=== PATIENT | male | born 1995 | race Caucasian/White ===

== ENCOUNTER 2017-02-01 15:16 | Outpatient (CLI) | payer BC | END 2017-02-01 15:17 | disposition critical access hospital (66) | LOC: EMS 15:16 | PROVIDERS: ATTEND Surgery | DX: M25.512 Pain in left shoulder (principal); S01.82XA Laceration with foreign body of other part of head, initial encounter; S01.02XA Laceration with foreign body of scalp, initial encounter; V48.5XXA Car driver injured in noncollision transport accident in traffic accident, initial encounter; Y92.414 Local residential or business street as the place of occurrence of the external cause | CPT/HCPCS: A0425; A0427 ==

== ENCOUNTER 2017-02-01 15:46 | Observation (INO) | payer OTHER, BC ==
[2017-02-01] MEDS ORDERED: ACETAMINOPHEN 1,000 MG/100 ML 100 ML IV STA (16:01)
[2017-02-01] MEDS ORDERED: SODIUM CHLORIDE 0.9% 1,000 ML IV ONE (16:01)
[2017-02-01] MEDS ORDERED: ACETAMINOPHEN 1,000 MG/100 ML 100 ML IV ONE (16:05)
[2017-02-01 16:16] LABS: BASOPHILS # (AUTO) 0.1 10^3/uL (0.0-0.1); BASOPHILS % (AUTO) 0.6 %; EOSINOPHILS # (AUTO) 0.2 10^3/uL (0.0-0.7); EOSINOPHILS % (AUTO) 2.3 %; HCT - HEMATOCRIT 45.5 % (42.0-52.0); HGB - HEMOGLOBIN 15.5 g/dL (14.0-18.0); LYMPHOCYTES # (AUTO) 1.8 10^3/uL (1.5-3.5); LYMPHOCYTES % (AUTO) 20.2 %; MEAN CORPUSCULAR HEMOGLOBIN 31.1 pg (27.0-31.0); MEAN CORPUSCULAR HGB CONC 34.1 g/dL (32.0-36.0); MEAN CORPUSCULAR VOLUME 91.3 fL (80.0-94.0); MEAN PLATELET VOLUME 8.5 fL (7.4-11.4); MONOCYTES # (AUTO) 0.5 10^3/uL (0.0-1.0); MONOCYTES % (AUTO) 5.8 %; NEUTROPHILS # (AUTO) 6.5 10^3/uL (1.5-6.6); NEUTROPHILS % (AUTO) 71.1 %; RED BLOOD COUNT 4.98 10^6/uL (4.70-6.10); RED CELL DISTRIBUTION WIDTH 13.2 % (12.0-15.0); UNCORRECTED WHITE BLOOD COUNT 9.1 x10^3/uL; WHITE BLOOD COUNT 9.1 x10^3/uL (4.8-10.8)
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
[2017-02-01 16:33] LABS: BILIRUBIN,TOTAL 0.6 mg/dL (0.2-1.0); CALCIUM 9.1 mg/dL (8.5-10.3); CREATININE 1.1 mg/dL (0.6-1.2); POTASSIUM 3.1 mmol/L (3.5-5.0); TOTAL PROTEIN 7.8 g/dL (6.7-8.2)
--- NOTE | 2017-02-01 16:36 | XRAY Preliminary Report ---
Exam: XR Chest 1 View IMPRESSION: Left clavicle fracture. [facility] SITE ID: [id number]
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
[2017-02-01] MEDS ORDERED: IOPAMIDOL-300 100 ML VIAL IVP ONE (17:03)
[2017-02-01] MEDS ORDERED: HYDROmorphone 1 MG/ML SYRINGE ONE (17:24)
[2017-02-01] MEDS ORDERED: ONDANSETRON 4 MG/2 ML VIAL IVP STA (17:24)
[2017-02-01] MEDS ORDERED: ONDANSETRON 4 MG/2 ML VIAL ONE (17:24)
[2017-02-01] MEDS ORDERED: HYDROmorphone 1 MG/ML SYRINGE IVP STA ×2 (17:24→19:53)
--- NOTE | 2017-02-01 17:41 | CT Preliminary Report ---
Exam: CT Head W/O IMPRESSION: 1. Moderate to large left lateral scalp hematoma. 2. No acute or focal intracranial abnormality seen. [facility] S[facility] [id number]
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
--- NOTE | 2017-02-01 17:44 | CT Preliminary Report ---
Exam: CT Cervical Spine W/O IMPRESSION: 1. No cervical spine fracture. 2. Right apical pneumothorax. [facility] SITE ID: [id number]
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
--- NOTE | 2017-02-01 17:51 | CT Preliminary Report ---
Exam: CT Abdomen/Pelvis W/ IMPRESSION: 1. No evidence for solid organ injury. No acute findings are seen in the abdomen or pelvis. 2. Small right base pneumothorax. [facility] The above critical findings were discussed with kael by Dr. Zulema Ramesh at 17:47 hrs on . SITE ID: [id number]
--- NOTE | 2017-02-01 17:51 | CT Preliminary Report ---
Exam: CT Facial Bones W/O IMPRESSION: 1. No facial bone fracture. 2. Mild pansinus mucosal thickening and right maxillary sinus mucous retention cyst. [facility] SITE ID: [id number]
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
--- NOTE | 2017-02-01 18:06 | CT Preliminary Report ---
Exam: CT Chest Angio (AORTA) IMPRESSION: 1. No vascular abnormality. 2. Small right apical pneumothorax. No acute rib fracture seen to account for such. 3. Pulmonary contusion superior posterior aspect left lung. [facility] The above critical findings were discussed with Dr. Hunter by Dr. Lisset Goodrich at 18:05 hrs on . SITE ID: [id number]
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
[2017-02-01] MEDS ORDERED: SODIUM CHLORIDE FLUSH 0.9% 10 ML SYRINGE IVP PRN (19:25)
[2017-02-01] MEDS: HYDROmorphone 1 MG/ML SYRINGE IVP PRN ×2 (19:45→21:52)
[2017-02-01] MEDS: D5NS W/20 MEQ KCL 1,000 ML IV SCH (21:10)
[2017-02-01] MEDS: PANTOPRAZOLE 40 MG VIAL IVP SCH (21:53)
[2017-02-01] MEDS ORDERED: NICOTINE 21 MG PATCH TOP SCH (22:00)
[2017-02-02] MEDS: HYDROmorphone 1 MG/ML SYRINGE IVP PRN ×3 (00:38→13:50)
[2017-02-02] MEDS: ONDANSETRON 4 MG/2 ML VIAL IVP PRN ×3 (00:38→15:27)
[2017-02-02] MEDS: SODIUM CHLORIDE FLUSH 0.9% 10 ML SYRINGE IVP SCH ×3 (01:01→09:27)
[2017-02-02 05:02] LABS: BASOPHILS % (AUTO) 0.3 %; EOSINOPHILS # (AUTO) 0.1 10^3/uL (0.0-0.7); EOSINOPHILS % (AUTO) 0.7 %; HCT - HEMATOCRIT 39.1 % (42.0-52.0); HGB - HEMOGLOBIN 13.3 g/dL (14.0-18.0); LYMPHOCYTES % (AUTO) 7.8 %; MEAN CORPUSCULAR HEMOGLOBIN 31.2 pg (27.0-31.0); MEAN CORPUSCULAR HGB CONC 33.9 g/dL (32.0-36.0); MEAN PLATELET VOLUME 8.8 fL (7.4-11.4); MONOCYTES # (AUTO) 0.8 10^3/uL (0.0-1.0); MONOCYTES % (AUTO) 6.7 %; NEUTROPHILS # (AUTO) 10.7 10^3/uL (1.5-6.6); NEUTROPHILS % (AUTO) 84.5 %; RED BLOOD COUNT 4.25 10^6/uL (4.70-6.10); RED CELL DISTRIBUTION WIDTH 12.9 % (12.0-15.0); UNCORRECTED WHITE BLOOD COUNT 12.6 x10^3/uL; WHITE BLOOD COUNT 12.6 x10^3/uL (4.8-10.8)
[2017-02-02 05:15] LABS: ALBUMIN/GLOBULIN RATIO 2.2 (1.0-2.2); BILIRUBIN,TOTAL 0.9 mg/dL (0.2-1.0); CALCIUM 8.4 mg/dL (8.5-10.3); CREATININE 0.9 mg/dL (0.6-1.2); POTASSIUM 4.2 mmol/L (3.5-5.0); TOTAL PROTEIN 6.4 g/dL (6.7-8.2)
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
--- NOTE | 2017-02-02 06:11 | XRAY Preliminary Report ---
Exam: XR Chest 1 View IMPRESSION: Stable small right pneumothorax without mediastinal shift. [facility] SITE ID: [id number]
--- NOTE | 2017-02-02 06:13 | XRAY Report ---
EXAM: CHEST RADIOGRAPHY EXAM DATE: 02/02/2017 05:57 AM. CLINICAL HISTORY: Follow-up pneumothorax COMPARISON: Prior day x-ray and CT. TECHNIQUE: 1 view. FINDINGS: Lungs/Pleura: Stable small right pneumothorax. Lungs otherwise clear. No large effusion. Mediastinum: Within exam limitations, cardiomediastinal contour is normal. Other: None. IMPRESSION: Stable small right pneumothorax without mediastinal shift. [facility] Referring Provider Line: [phone] SITE ID: [id number]
[2017-02-02] MEDS: D5NS W/20 MEQ KCL 1,000 ML IV SCH (08:15)
[2017-02-02] MEDS: PANTOPRAZOLE 40 MG VIAL IVP SCH (09:27)
[2017-02-02] MEDS ORDERED: ACETAMINOPHEN 325 MG TABLET PO PRN (09:45)
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
[2017-02-02 16:08] VITALS: BP 122/70
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
--- NOTE | 2017-02-02 18:35 | Discharge Plan ---
Discharge Plan Disposition: 01 Home, Self Care Condition: Good Diet: Regular Activity Restrictions: Additional Comments (No flying in plane (pressurized cabin), scuba diving, or smoking.) Shower Restrictions: No Driving Restrictions: Yes (Until he can drive without pain medication and full range of motion.) Assistance Devices: Sling (For comfort measures.) Weight Bearing: Full Weight Additional Instructions or Follow Up instructions: Patient to call office for an order for CXR to be done PRIOR to visit with Dr. Cartagena to check for stability and hopefully resolution of pneumothorax. Prescription for Norco10/325 mg and Colace already given to patient. No Smoking: If you smoke, Please STOP! Call for help. Follow-up with: Vel Ward MD [Provider Admit Priv/Credential] - JOSEFINA CARTAGENA MD [Provider Admit Priv/Credential] -
--- NOTE | 2017-02-03 10:13 | XRAY Report ---
LEFT CLAVICLE, TWO VIEWS, AP AND ANGLED: 02/02/2017 CLINICAL HISTORY: Trauma. FINDINGS: Acute, mildly comminuted fracture of the distal left clavicle is seen. Mild inferior disp lacement of the proximal fragment is noted. The distal mildly comminuted fragment is still aligned w ith the left acromion at the level of the AC joint. The AC joint, however, is wide which indicates a t least mild AC joint separation. There is mild foreshortening noted between the major fracture frag ments with the distal fragment overlying the superior aspect of the proximal fragment. IMPRESSION: 1. ACUTE, MILDLY COMMINUTED, MILDLY DISPLACED FRACTURE OF THE DISTAL LEFT CLAVICLE. 2. ASSOCIATED MILD LEFT AC JOINT SEPARATION MAINLY MANIFESTED BY WIDENING OF THE LEFT AC JOINT. JOB #: [id number] EXT JOB #:[id number]
== END 2017-02-02 19:06 | disposition home or self-care (01) ==
LOC: ED 15:46 → ICU 19:23
PROVIDERS: ADMIT Surgery; ATTEND Surgery
DX: S27.0XXA Traumatic pneumothorax, initial encounter (principal); S42.032A Displaced fracture of lateral end of left clavicle, initial encounter for closed fracture; V48.5XXA Car driver injured in noncollision transport accident in traffic accident, initial encounter; Y92.410 Unspecified street and highway as the place of occurrence of the external cause; S01.01XA Laceration without foreign body of scalp, initial encounter; S01.412A Laceration without foreign body of left cheek and temporomandibular area, initial encounter; S41.112A Laceration without foreign body of left upper arm, initial encounter; S27.321A Contusion of lung, unilateral, initial encounter; F17.210 Nicotine dependence, cigarettes, uncomplicated
CPT/HCPCS: 12001; 12013; 36415; 70450; 70486; 71010; 71275; 72125; 73000; 74177; 80053; 80320; 83690; 85025; 86850; 86900; 86901; 87150; 93005; 96361; 96374; 96375; 96376; 99217; 99218; 99284; 99285; A9270; J0131; J1170; Q9967

== ENCOUNTER 2017-09-12 08:35 | Day surgery (SDC) | payer OTHER, BC ==
[2017-09-12] MEDS ORDERED: ceFAZolin 2 GM/50 ML 2 GM/50 ML BAG IV ONE (08:49)
[2017-09-12] MEDS ORDERED: ACETAMINOPHEN 1,000 MG/100 ML 100 ML IV ONE ×2 (08:49→11:15)
[2017-09-12] MEDS ORDERED: CELECOXIB 100 MG CAPSULE PO ONE (08:50)
[2017-09-12] MEDS ORDERED: LACTATED RINGERS 1,000 ML IV ONE ×2 (09:30→11:50)
[2017-09-12] MEDS ORDERED: LIDOCAINE MPF 1%-EPI 1:200000 30 ML VIAL SUBQ ONE (11:04)
[2017-09-12] MEDS ORDERED: GLYCOPYRROLATE 1 MG/5 ML VIAL IVP ONE (11:15)
[2017-09-12] MEDS ORDERED: PROPOFOL 200 MG/20 ML VIAL IVP ONE (11:15)
[2017-09-12] MEDS ORDERED: KETOROLAC 30 MG/ML VIAL IVP ONE (11:15)
[2017-09-12] MEDS ORDERED: ROCURONIUM 50 MG/5 ML VIAL IVP ONE (11:15)
[2017-09-12] MEDS ORDERED: NEOSTIGMINE 1 MG/1 ML 10 ML MDV IVP ONE (11:15)
[2017-09-12] MEDS ORDERED: LIDOCAINE-MPF 2% 5 ML VIAL IM ONE (11:15)
[2017-09-12] MEDS ORDERED: fentaNYL 100 MCG/2 ML VIAL IVP ONE (11:15)
[2017-09-12] MEDS ORDERED: HYDROmorphone 1 MG/ML SYRINGE ONE (11:55)
[2017-09-12] MEDS ORDERED: ONDANSETRON 4 MG/2 ML VIAL ONE (12:02)
--- NOTE | 2017-09-12 12:02 | OPERATIVE REPORT ---
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 PROCEDURE PERFORMED: Left distal clavicle Marleni procedure. SURGEON: Devi Aragon MD ANESTHESIA: General. INDICATIONS FOR SURGERY: The patient is a 22-year-old male who suffered a closed injury of his left distal clavicle and went on to malunion of a fracture fragment about the distal clavicle with ongoing mild aching pain in the shoulder interfering with activity and some function. The patient has ultimately opted to have Marleni excision for relief of chronic aching in the shoulder. FINDINGS OF SURGERY: The patient's distal clavicle was widened and enlarged, and showed arthritic changes at the AC joint. The patient did not have a nonunion, instead had a malunion with widening of the bone. DESCRIPTION OF OPERATIVE PROCEDURE: The patient was taken to the operating room, given a general anesthetic. His surgical shoulder was sterilely prepped and draped in standard fashion in a beach chair position. Surgical timeout was held. The patient's shoulder surgical approach was to be a direct anterior incision centered over the distal clavicle. This area was infiltrated with 1% lidocaine with epinephrine. Following this, the 2-1/2 inch incision was made and directed down to the fascia overlying the muscles, the trap and the deltoid, and a layer was developed directly down onto the superior surface of the clavicle at the distal clavicle, and a T-shaped connection was made over the AC joint, which allowed exposure of that joint and of the distal clavicle. The deformity of the clavicle was noted and the enlargement. Approximately 8-10 mm were removed with the saw carefully, and the rongeur was used to smooth the margins of the residual bone and to remove some of the scar tissue about the end of the clavicle. The area was irrigated thoroughly. The capsule was then securely closed over the surgical site with 0 Vicryl interrupted. There was minimal bleeding. The cautery was used. Subcutaneous tissue closed with 2-0 Vicryl and skin with Monocryl in an interrupted fashion. Sterile dressings were applied utilizing a Mepilex Silver-containing dressing directly over the incision. The patient was placed into a sling and then transported to the recovery room on a gurney in stable condition. ESTIMATED BLOOD LOSS: Approximately 20-30 mL. COMPLICATIONS: None. COUNTS: Sponge and needle counts correct. TD: 09/12/2017 11:58
[2017-09-12] MEDS ORDERED: HYDROcod/ACETAM 5/325 MG TABLET ONE ×2 (12:18→12:50)
[2017-09-12 13:00] VITALS: BP 123/78
--- NOTE | 2017-09-12 15:36 | XRAY Report ---
TWO VIEW LEFT CLAVICLE: 09/12/2017 CLINICAL INDICATION: Postop. FINDINGS: AP and oblique views of the left clavicle are compared to previous films of 04/17/2017. There has been resection of the majority of the distal fracture fragment. No acute fracture is seen. IMPRESSION: POSTOPERATIVE CHANGES OF DISTAL CLAVICLE RESECTION. TD: 09/12/2017 15:35
== END 2017-09-12 08:36 | disposition home or self-care (01) ==
LOC: SDS 08:35
PROVIDERS: ATTEND Orthopaedic Surgery
PROC: 0PBB0ZZ Excision of Left Clavicle, Open Approach (ICD-10-PCS; principal; 2017-09-12 10:00)
DX: S42.032P Displaced fracture of lateral end of left clavicle, subsequent encounter for fracture with malunion (principal); M19.012 Primary osteoarthritis, left shoulder; F17.210 Nicotine dependence, cigarettes, uncomplicated
CPT/HCPCS: 23120; 73000; A9270; J0131; J0690; J1170; J7120

== ENCOUNTER 2018-11-05 12:32 | Emergency (ER) | payer BC, OTHER ==
[2018-11-05 13:07] LABS: BASOPHILS # (AUTO) 0.1 10^3/uL (0.0-0.1); BASOPHILS % (AUTO) 1.1 %; EOSINOPHILS # (AUTO) 0.2 10^3/uL (0.0-0.7); EOSINOPHILS % (AUTO) 3.5 %; HGB - HEMOGLOBIN 14.4 g/dL (14.0-18.0); LYMPHOCYTES # (AUTO) 1.6 10^3/uL (1.5-3.5); LYMPHOCYTES % (AUTO) 25.5 %; MEAN CORPUSCULAR HEMOGLOBIN 30.8 pg (27.0-31.0); MEAN CORPUSCULAR VOLUME 90.5 fL (80.0-94.0); MONOCYTES # (AUTO) 0.5 10^3/uL (0.0-1.0); NEUTROPHILS # (AUTO) 3.9 10^3/uL (1.5-6.6); NEUTROPHILS % (AUTO) 61.9 %; PLT - PLATELET COUNT 171 10^3/uL (130-450); RED BLOOD COUNT 4.69 10^6/uL (4.70-6.10); RED CELL DISTRIBUTION WIDTH 12.9 % (12.0-15.0); WHITE BLOOD COUNT 6.3 x10^3/uL (4.8-10.8)
[2018-11-05 13:20] LABS: ALBUMIN 4.6 g/dL (3.2-5.5); ALBUMIN/GLOBULIN RATIO 1.7 (1.0-2.2); BILIRUBIN,TOTAL 0.7 mg/dL (0.2-1.0); CALCIUM 8.9 mg/dL (8.5-10.3); CREATININE 1.1 mg/dL (0.6-1.2); TOTAL PROTEIN 7.3 g/dL (6.7-8.2)
[2018-11-05] MEDS ORDERED: MAG HYDROX/AL HYDROX/SIMETH 30 ML UDC PO STA (13:55)
[2018-11-05] MEDS ORDERED: LIDOCAINE VISCOUS 2% 15 ML UDC MM STA (13:55)
[2018-11-05] MEDS ORDERED: FAMOTIDINE 20 MG TABLET PO STA (13:55)
[2018-11-05] MEDS ORDERED: PHENobarb/HYOSCY/ATROPINE/SCOP 5 ML UDC PO STA (13:55)
[2018-11-05] MEDS ORDERED: SUCRALFATE 1 GM/10 ML UDC PO STA (13:55)
--- NOTE | 2018-11-05 14:06 | ED Physician Documentation ---
PD HPI ABD PAIN - Stated complaint Stated Complaint: ABD PX - Chief complaint Chief Complaint: Abd Pain - History obtained from History obtained from: Patient - History of Present Illness Pain level max: 7 Pain level now: 3 Quality: Aching, Indigestion, Pain Location: Epigastric, LUQ Radiation: Chest Improved by: Other (nothing) Worsened by: Eating Associated symptoms: No: Fever, Nausea, Vomiting, Hematemesis, Diarrhea, Const ipation, Melena, Hematochezia, Dysuria Recently seen: Clinic - Additional information Additional information: 23-year-old male with epigastric and left upper quadrant abdominal pain, radiates to the chest. Was on Prilosec for 2 weeks with no relief. Occasionally take Zantac as well. He does smoke. Does not use any anti-inflammatories regularly. Does drink caffeine, does not drink large amounts of alcohol. Review of Systems Constitutional: denies: Fever, Chills GI: denies: Vomiting, Diarrhea Skin: denies: Rash Musculoskeletal: denies: Neck pain, Back pain Neurologic: denies: Headache PD PAST MEDICAL HISTORY - Past Medical History Cardiovascular: None Respiratory: None Endocrine/Autoimmune: None GI: None : None HEENT: None Psych: None Musculoskeletal: None Derm: None - Past Surgical History Past Surgical History: Yes General: Appendectomy - Present Medications Home Medications: Ambulatory Orders Medication Instructions Recorded Confirmed Famotidine [Pepcid] 20 mg PO BID #60 tablet 11/05/18 Sucralfate [Carafate] 1 gm PO ACHS #60 tablet 11/05/18 - Allergies Allergies/Adverse Reactions: Allergies Allergy/AdvReac Type Severity Reaction Status Date / Time No Known Drug Allergies Allergy Verified 11/05/18 12:51 - Social History Does the pt smoke?: Yes Smoking Status: Current every day smoker Does the pt drink ETOH?: No Does the pt have substance abuse?: No - Immunizations Immunizations are current?: Yes Immunizations: TDAP current <10years - POLST Patient has POLST: No PD ED PE NORMAL - Vitals Vital signs reviewed: Yes - General General: Alert and oriented X 3, No acute distress - HEENT HEENT: Moist mucous membranes - Neck Neck: Supple, no meningeal sign - Cardiac Cardiac: RRR, Strong equal pulses - Respiratory Respiratory: No respiratory distress, Clear bilaterally - Abdomen Abdomen: Soft, Other (Tender palpation epigastric and left upper quadrant. No peritoneal signs.) - Derm Derm: Warm and dry - Neuro Neuro: Alert and oriented X 3 Results - Vitals Vitals: Vital Signs - 24 hr 11/05/18 11/05/18 12:49 14:17 Temperature 36.7 C Heart Rate 82 78 Respiratory 20 18 Rate Blood Pressure 113/70 121/78 O2 Saturation 100 100 Oxygen O2 Source Room air - Labs Labs: Laboratory Tests 11/05/18 11/05/18 13:02 13:02 WBC 6.3 RBC 4.69 L Hgb 14.4 Hct 42.5 MCV 90.5 MCH 30.8 MCHC 34.0 RDW 12.9 Plt Count 171 MPV 8.0 Neut # (Auto) 3.9 Lymph # (Auto) 1.6 Crosby # (Auto) 0.5 Eos # (Auto) 0.2 Baso # (Auto) 0.1 Absolute Nucleated RBC 0.00 Nucleated RBC % 0.0 Sodium 137 Potassium 3.5 Chloride 102 Carbon Dioxide 27 Anion Gap 8.0 BUN 13 Creatinine 1.1 Estimated GFR (MDRD) 82 L Glucose 83 Calcium 8.9 Total Bilirubin 0.7 AST 21 ALT 12 Alkaline Phosphatase 37 L Total Protein 7.3 Albumin 4.6 Globulin 2.7 Albumin/Globulin Ratio 1.7 Lipase 31 PD MEDICAL DECISION MAKING - ED course Complexity details: reviewed results, re-evaluated patient, considered differential, d/w patient ED course: Patient with what appears to be GERD and esophagitis. GI cocktail resolved symptoms. Will place on medication for home. No acute laboratory abnormalities. Patient counseled regarding signs and symptoms for which I believe and urgent re-evaluation would be necessary. Patient with good understanding of and agreement to plan and is comfortable going home at this time This document was made in part using voice recognition software. While efforts are made to proofread this document, sound alike and grammatical errors may occur. Departure - Departure Disposition: 01 Home, Self Care Clinical Impression: GERD (gastroesophageal reflux disease) Qualifiers: Esophagitis presence: with esophagitis Qualified Code(s): K21.0 - Gastro- esophageal reflux disease with esophagitis Condition: Good Instructions: ED GERD Follow-Up: NATALIE PUCKETT ARNP [Primary Care Provider] - Within 1 week Prescriptions: Famotidine [Pepcid] 20 mg PO BID #60 tablet Sucralfate [Carafate] 1 gm PO ACHS #60 tablet Comments: You need to follow-up with your doctor within 1 week. You should have an endoscopy scheduled. Return if you worsen. Avoid smoking, caffeine, fried foods, spicy foods, alcohol. Discharge Date/Time: 11/05/18 14:17
[2018-11-05 14:18] VITALS: BP 121/78
== END 2018-11-05 14:17 | disposition home or self-care (01) ==
LOC: ED 12:32
DX: K21.0 Gastro-esophageal reflux disease with esophagitis (principal); F17.200 Nicotine dependence, unspecified, uncomplicated
CPT/HCPCS: 36415; 80053; 83690; 85025; 99283; A9270

== ENCOUNTER 2020-04-09 12:46 | Emergency (ER) | payer SELFPAY ==
[2020-04-09 12:54] VITALS: BP 132/75
--- NOTE | 2020-04-09 13:30 | ED Physician Documentation ---
History of Present Illness - Stated complaint Stated Complaint: RT HAND PX - Chief complaint Chief Complaint: Ext Problem - Additonal information Additional information: 24 yo M thinks he may have got a splinter in the right hand about 3 weeks ago. Has been trying to soak it w/o improvement. Tried to remove splinter himself but coudn't get it. Hand is not getting swollen or red. No drainage. Review of Systems Ten Systems: 10 systems reviewed and negative PD PAST MEDICAL HISTORY - Past Medical History Cardiovascular: None Respiratory: None Endocrine/Autoimmune: None GI: None : None HEENT: None Psych: None Musculoskeletal: None Derm: None - Past Surgical History Past Surgical History: Yes General: Appendectomy - Present Medications Home Medications: Ambulatory Orders Medication Instructions Recorded Confirmed Famotidine [Pepcid] 20 mg PO BID #60 tablet 11/05/18 Sucralfate [Carafate] 1 gm PO ACHS #60 tablet 11/05/18 - Allergies Allergies/Adverse Reactions: Allergies Allergy/AdvReac Type Severity Reaction Status Date / Time No Known Drug Allergies Allergy Verified 11/05/18 12:51 - Social History Does the pt smoke?: Yes Smoking Status: Current every day smoker Does the pt drink ETOH?: No Does the pt have substance abuse?: No - Immunizations Immunizations are current?: Yes Immunizations: TDAP current <10years - POLST Patient has POLST: No PD ED PE NORMAL - Vitals Vital signs reviewed: Yes - General General: Alert and oriented X 3, No acute distress, Well developed/nourished - Derm Derm: Normal color, Warm and dry, No rash - Extremities Extremities: No deformity, Normal ROM s pain, No edema, Other (normal right hand and wrist rom. mild ttp over the lower palm w/o obvious foreign body, no fluid collection, induraton, or fluctuance. ) - Neuro Neuro: Alert and oriented X 3 Eye Opening: Spontaneous Motor: Obeys Commands Verbal: Oriented GCS Score: 15 - Psych Psych: Normal mood, Normal affect Results - Vitals Vitals: Vital Signs - 24 hr 04/09/20 12:51 Temperature 36.9 C Heart Rate 85 Respiratory 16 Rate Blood Pressure 132/75 H O2 Saturation 99 Oxygen O2 Source Room air PD MEDICAL DECISION MAKING - ED course Complexity details: considered differential, d/w patient ED course: Pt presented w/ possible splinter in the right palm. No palpable defect or evidence of infection. Xray negative though wood splinter likely not to show up. Given no signs of infection, advised pt that he may have a splinter but the risks of I&D to search for splinter outweigh the benefits. Supportive measures reviewed, return precautions discussed if area becomes red, swollen, has purulent drainage, or is otherwise worsening. Departure - Departure Disposition: 01 Home, Self Care Clinical Impression: Pain in extremity Qualifiers: Extremity pain location: hand Laterality: right Qualified Code(s): M79.641 - Pain in right hand Condition: Good Comments: You presented with concern for foreign body in the hand. The xray does not show any radioopaque foreign body. It is possible that a small splinter remains but the risks of opening your skin to look for the splinter outweigh the benefits as there is no sign of infection. You may use warm compress, avoid digging at the site. You may take prn ibuprofen or tylenol. Follow up if redness/swelling or fever.
--- NOTE | 2020-04-09 14:49 | XRAY Report ---
PROCEDURE: Hand 2 View RT INDICATIONS: Possible foreign body TECHNIQUE: 2 views of the hand(s) acquired. COMPARISON: None FINDINGS: Bones: No fractures or dislocations. No suspicious bony lesions. Joint spaces are maintained. Soft tissues: No suspicious soft tissue calcifications. No radiopaque foreign body demonstrated. IMPRESSION: No radiopaque foreign body or other acute finding in the hand. Reviewed by: Renato Richter MD on 04/09/2020 2:47 PM PDT Approved by: Renato Richter MD on 04/09/2020 2:47 PM PDT Station ID: [id number]
== END 2020-04-09 15:57 | disposition home or self-care (01) ==
LOC: ED 12:46
DX: M79.641 Pain in right hand (principal); F17.200 Nicotine dependence, unspecified, uncomplicated
CPT/HCPCS: 99281; 99283

== ENCOUNTER 2021-05-17 08:00 | Outpatient (CLI) | payer SELFPAY ==
[2021-05-17 15:01] LABS: BASOPHILS # (AUTO) 0.1 10^3/uL (0.0-0.1); BASOPHILS % (AUTO) 0.9 %; EOSINOPHILS # (AUTO) 0.3 10^3/uL (0.0-0.7); EOSINOPHILS % (AUTO) 4.2 %; HCT - HEMATOCRIT 43.1 % (42.0-52.0); HGB - HEMOGLOBIN 14.9 g/dL (14.0-18.0); LYMPHOCYTES # (AUTO) 2.2 10^3/uL (1.5-3.5); LYMPHOCYTES % (AUTO) 29.2 %; MEAN CORPUSCULAR HEMOGLOBIN 31.4 pg (27.0-31.0); MEAN CORPUSCULAR HGB CONC 34.6 g/dL (32.0-36.0); MEAN CORPUSCULAR VOLUME 90.9 fL (80.0-94.0); MEAN PLATELET VOLUME 11.1 fL (7.4-11.4); MONOCYTES # (AUTO) 0.7 10^3/uL (0.0-1.0); MONOCYTES % (AUTO) 8.7 %; NEUTROPHILS # (AUTO) 4.3 10^3/uL (1.5-6.6); NEUTROPHILS % (AUTO) 56.5 %; PLT - PLATELET COUNT 197 10^3/uL (130-450); RED BLOOD COUNT 4.74 10^6/uL (4.70-6.10); RED CELL DISTRIBUTION WIDTH 11.9 % (12.0-15.0); WHITE BLOOD COUNT 7.7 x10^3/uL (4.8-10.8)
[2021-05-17 15:26] LABS: ALBUMIN 4.7 g/dL (3.2-5.5); ALBUMIN/GLOBULIN RATIO 1.9 (1.0-2.2); BILIRUBIN,TOTAL 0.4 mg/dL (0.2-1.0); TOTAL PROTEIN 7.2 g/dL (6.7-8.2)
[2021-05-17 15:32] LABS: CALCIUM 9.1 mg/dL (8.5-10.3); POTASSIUM 3.8 mmol/L (3.5-5.0)
== END 2021-05-17 23:59 | disposition home or self-care (01) ==
LOC: LAB.S 08:00
PROVIDERS: ATTEND Nurse Practitioner
DX: R10.13 Epigastric pain (principal)
CPT/HCPCS: 36415; 80053; 82150; 83690; 85025

== ENCOUNTER 2023-03-20 10:43 | Emergency (ER) | payer OTHER ==
--- OUTSIDE RECORDS SUMMARY | 2023-03-20 11:18 | EXTERNAL MEDICAL SUMMARY RPT | Continuity of Care Document ---
Author Name Unknown Address [address] [place] [address] Phone Organization [facility] Address [address] [place] [address] Phone Care Team Providers Care Ecological Technical Officer Name Role Phone Unavailable Unavailable Unavailable Jaydon Jiménez Pa-C Unavailable Unavailable Medications date description facility 2023-03-03 00:00 amoxicillin-pot clavulanate [facility] 2023-03-03 00:00 amoxicillin-pot clavulanate [facility] 2023-03-03 00:00 amoxicillin-pot clavulanate [facility] 2023-03-03 00:00 amoxicillin-pot clavulanate [facility] Problems date description facility 2023-03-03 00:00 Pain of ear [facility] 2023-03-03 00:00 Acute otitis media [facility] 2023-03-03 00:00 Impacted cerumen [facility] 2023-03-03 00:00 Unspecified otitis media [facility] 2023-03-03 00:00 Otalgia, unspecified [facility] 2023-03-03 00:00 Impacted cerumen, right ear [facility] 2023-03-03 00:00 Otitis media, unspecified, left ear [facility] 2023-03-03 00:00 Otalgia, bilateral [facility] Procedures date description facility 2023-03-03 00:00 Visit Code Hold [facility] Social History date description facility 2023-03-03 00:00 Current every day smoker [facility] [place] Vital Signs date measurement value units 2023-03-03 00:00 BMI 19.87 kg/m2 2023-03-03 00:00 BP_diastolic 70 mmHg 2023-03-03 00:00 BP_systolic 118 mmHg 2023-03-03 00:00 heart_rate 67 /min 2023-03-03 00:00 height_metric 177.16 cm 2023-03-03 00:00 height_standard 69.75 in 2023-03-03 00:00 respiration_rate 14 /min 2023-03-03 00:00 temperature_metric 36.33 C 2023-03-03 00:00 temperature_standard 97.4 F 2023-03-03 00:00 weight_metric 62.14 kg 2023-03-03 00:00 weight_standard 137 lb
--- NOTE | 2023-03-20 11:55 | ED Physician Documentation ---
PD HPI URI - Stated complaint Stated Complaint: MCCARTNEY,EAR/THROAT/CHEST PX - Chief complaint Chief Complaint: General - History obtained from History obtained from: Patient - History of Present Illness Timing - onset: How many months ago (2) Timing duration: Months (2) Timing details: Gradual onset, Still present Associated symptoms: Nasal congestion, Sinus pain (frontal area and toward ears), Sore throat, Other (general fatigue and malaise, with some pains in left chest with cough. No dyspnea per se. Did not start with apparent URI. Has had consistent symptoms for couple months and finally concerned since not improving.). No: Fever, Chills, Chest pain, Dyspnea Contributing factors: No: Sick contact, Immunocompromised Similar symptoms before: Has not had sx before Recently seen: Not recently seen Review of Systems Constitutional: reports: Myalgias, Fatigue. denies: Fever, Chills, Weight Loss Ears: denies: Ear pain Nose: reports: Rhinorrhea / runny nose, Congestion, Sinus pressure / pain Throat: reports: Sore throat Cardiac: reports: Chest pain / pressure (left chest locally around pectoral area with deep breath/cough.). denies: Palpitations, Pedal edema Respiratory: denies: Dyspnea, Wheezing GI: denies: Abdominal Pain, Vomiting, Diarrhea Skin: denies: Rash, Lesions PD PAST MEDICAL HISTORY - Past Medical History Cardiovascular: None Respiratory: None Endocrine/Autoimmune: None GI: None : None HEENT: None Psych: None Musculoskeletal: None Derm: None - Past Surgical History Past Surgical History: Yes General: Appendectomy - Present Medications Home Medications: Ambulatory Orders Medication Instructions Recorded Confirmed Cetirizine [ZyrTEC] 10 mg PO DAILY #15 tablet 03/20/23 dexAMETHasone [Decadron] 4 mg PO DAILY #7 tablet 03/20/23 - Allergies Allergies/Adverse Reactions: Allergies Allergy/AdvReac Type Severity Reaction Status Date / Time No Known Drug Allergies Allergy Verified 03/20/23 10:58 - Social History Does the pt smoke?: Yes Smoking Status: Current every day smoker Does the pt drink ETOH?: No Does the pt have substance abuse?: No - Immunizations Immunizations are current?: Yes Immunizations: TDAP current <10years - POLST Patient has POLST: No PD ED PE NORMAL - Vitals Vital signs reviewed: Yes - General General: Alert and oriented X 3, No acute distress, Well developed/nourished - HEENT HEENT: Ears normal, Moist mucous membranes, Pharynx benign - Neck Neck: Supple, no meningeal sign, No adenopathy - Cardiac Cardiac: RRR, No murmur - Respiratory Respiratory: No respiratory distress, Clear bilaterally - Derm Derm: Normal color, Warm and dry, No rash - Neuro Neuro: Alert and oriented X 3, No motor deficit, Normal speech Results - Vitals Vitals: Vital Signs - 24 hr 03/20/23 03/20/23 03/20/23 10:58 12:25 14:22 Temperature 37.1 C 36.7 C Heart Rate 95 77 80 Respiratory 16 16 16 Rate Blood Pressure 132/74 H 108/59 L 118/72 O2 Saturation 98 99 100 Oxygen O2 Source Room air - Labs Labs: Laboratory Tests 03/20/23 03/20/23 03/20/23 11:05 12:39 12:39 WBC 8.0 RBC 4.98 Hgb 15.4 Hct 45.0 MCV 90.4 MCH 30.9 MCHC 34.2 RDW 11.7 L Plt Count 201 MPV 9.9 Neut # (Auto) 5.0 Lymph # (Auto) 1.9 [place] # (Auto) 0.6 Eos # (Auto) 0.3 Baso # (Auto) 0.1 Absolute Nucleated RBC 0.00 Nucleated RBC % 0.0 Sodium 139 Potassium 3.7 Chloride 106 Carbon Dioxide 29 Anion Gap 4.0 L BUN 14 Creatinine 1.1 Estimated GFR (MDRD) 79 L Glucose 87 Calcium 9.5 Total Bilirubin 0.3 AST 17 ALT 16 Alkaline Phosphatase 37 L C-Reactive Protein < 0.5 Total Protein 6.8 Albumin 4.7 Globulin 2.1 Albumin/Globulin Ratio 2.2 Lipase 29 Nasal Adenovirus (PCR) NOT DETECTED Nasal B. parapertussis DNA (PCR) NOT DETECTED Nasal Coronavir 229E PCR NOT DETECTED Nasal Coronavir HKU1 PCR NOT DETECTED Nasal Coronavir NL63 PCR NOT DETECTED Nasal Coronavir OC43 PCR NOT DETECTED Nasal Enterovir/Rhinovir PCR NOT DETECTED Nasal Influenza B PCR NOT DETECTED Nasal Influenza A PCR NOT DETECTED Nasal Parainfluen 1 PCR NOT DETECTED Nasal Parainfluen 2 PCR NOT DETECTED Nasal Parainfluen 3 PCR NOT DETECTED Nasal Parainfluen 4 PCR NOT DETECTED Nasal RSV (PCR) NOT DETECTED Nasal B.pertussis DNA PCR NOT DETECTED Nasal C.pneumoniae (PCR) NOT DETECTED Davey Human Metapneumo PCR NOT DETECTED Nasal M.pneumoniae (PCR) NOT DETECTED Nasal SARS-CoV-2 (PCR) NOT DETECTED Infectious [place] Assay 03/20/23 12:39 WBC RBC Hgb Hct MCV MCH MCHC RDW Plt Count MPV Neut # (Auto) Lymph # (Auto) Ste[place] # (Auto) Eos # (Auto) Baso # (Auto) Absolute Nucleated RBC Nucleated RBC % Sodium Potassium Chloride Carbon Dioxide Anion Gap BUN Creatinine Estimated GFR (MDRD) Glucose Calcium Total Bilirubin AST ALT Alkaline Phosphatase C-Reactive Protein Total Protein Albumin Globulin Albumin/Globulin Ratio Lipase Nasal Adenovirus (PCR) Nasal B. parapertussis DNA (PCR) Nasal Coronavir 229E PCR Nasal Coronavir HKU1 PCR Nasal Coronavir NL63 PCR Nasal Coronavir OC43 PCR Nasal Enterovir/Rhinovir PCR Nasal Influenza B PCR Nasal Influenza A PCR Nasal Parainfluen 1 PCR Nasal Parainfluen 2 PCR Nasal Parainfluen 3 PCR Nasal Parainfluen 4 PCR Nasal RSV (PCR) Nasal B.pertussis DNA PCR Nasal C.pneumoniae (PCR) Davey Human Metapneumo PCR Nasal M.pneumoniae (PCR) Nasal SARS-CoV-2 (PCR) Infectious [place] Assay NEGATIVE - Rads (name of study) chest xray Relevant Findings:: Prelim report reviewed, EMP independent interpretation of test (no infiltrates nor acute process. ) PD Medical Decision Making - ED course Complexity details: reviewed results (normal WBC (not leukemic) and blood count (not anemic), blood sugar excludes diabetes. normal lytes and renal function. CXR clear. CRp not elevated (less liekly autoimmune or major infectious). He does not have neck stiffness, so do not see need for LP. Not general MCCARTNEY so opted no CT.), considered differential (fatigue, sore throat, frontal headache, malaise for 2 months without apparent URI/flu like illness to start. He is concerned about other illnesses such as pneumonia, diabetes, etc. Can get CXR and labs to eval for other processes. Consider treating as sinus allergies. Does not seem bacterial infect.), d/w patient Departure - Departure Disposition: 01 Home, Self Care Clinical Impression: Sinus congestion, Chest pain Condition: Stable Record reviewed to determine appropriate education?: Yes Prescriptions: dexAMETHasone [Decadron] 4 mg PO DAILY #7 tablet Cetirizine [ZyrTEC] 10 mg PO DAILY #15 tablet Comments: Your chest x-ray is clear without any signs of pneumonia, tumors, other abnormality. Your blood tests are good with a normal white count and blood count. You are not anemic and no signs of notable and response to infection nor leukemia type process. Your chemistry panel shows normal kidney function and liver function as well as electrolytes and blood sugar. No signs of diabetes or kidney failure etc. Your monotest is negative. The respiratory viral panel test is negative at this point but that does not preclude having your symptoms start as a viral illness that having persistent symptoms. Alternatively, given this time of year, your symptoms may just relate to environmental allergies or irritants. I would suggest trying cetirizine antihistamine twice daily for several days and then once daily for another week or 2. Also Decadron steroid anti-inflammatory to help with any sinus and upper airway congestion. Your symptoms of the headache, some congestion, sore throat with some swollen glands and your symptoms are all suggestive of some upper airway/sinus inflammation. Does not necessarily sound like a bacterial infection. See how much better you do with the above medications. Follow-up with walk-in clinic or primary care if not improved well over the next several days to week. You can add Tylenol every 4-6 hours as needed for pains. I sent your prescriptions to your preferred pharmacy. Forms: PCP List Discharge Date/Time: 03/20/23 14:25
[2023-03-20 11:57] LABS: B. PARAPERTUSSIS- RESP PCR PAN NOT DETECTED; B. PERTUSSIS- RESP PCR PANEL NOT DETECTED; C. PNEUMONIAE- RESP PCR PANEL NOT DETECTED; CORONAVIRUS 229E-RESP PCR NOT DETECTED; CORONAVIRUS HKU1-RESP PCR NOT DETECTED; CORONAVIRUS NL63-RESP PCR NOT DETECTED; CORONAVIRUS OC43-RESP PCR NOT DETECTED; HUMAN METAPNEUMOVIRUS NOT DETECTED; INFLUENZA A- RESP PCR PANEL NOT DETECTED; INFLUENZA B - RESP PCR PANEL NOT DETECTED; M. PNEUMONIAE- RESP PCR PANEL NOT DETECTED; PARAINFLUENZA VIRUS 1 NOT DETECTED; PARAINFLUENZA VIRUS 2 NOT DETECTED; PARAINFLUENZA VIRUS 3 NOT DETECTED; PARAINFLUENZA VIRUS 4 NOT DETECTED; RHINOVIRUS/ENTEROVIRUS NOT DETECTED; RSV- RESP PCR PANEL NOT DETECTED; SARS-CoV-2 -RESP PCR PANEL NOT DETECTED
[2023-03-20 12:42] LABS: BASOPHILS # (AUTO) 0.1 10^3/uL (0.0-0.1); BASOPHILS % (AUTO) 0.9 %; EOSINOPHILS # (AUTO) 0.3 10^3/uL (0.0-0.7); EOSINOPHILS % (AUTO) 4.2 %; HGB - HEMOGLOBIN 15.4 g/dL (14.0-18.0); LYMPHOCYTES # (AUTO) 1.9 10^3/uL (1.5-3.5); MEAN CORPUSCULAR HEMOGLOBIN 30.9 pg (27.0-31.0); MEAN CORPUSCULAR HGB CONC 34.2 g/dL (32.0-36.0); MEAN CORPUSCULAR VOLUME 90.4 fL (80.0-94.0); MEAN PLATELET VOLUME 9.9 fL (7.4-11.4); MONOCYTES # (AUTO) 0.6 10^3/uL (0.0-1.0); MONOCYTES % (AUTO) 7.9 %; NEUTROPHILS % (AUTO) 62.5 %; PLT - PLATELET COUNT 201 10^3/uL (130-450); RED BLOOD COUNT 4.98 10^6/uL (4.70-6.10); RED CELL DISTRIBUTION WIDTH 11.7 % (12.0-15.0)
--- NOTE | 2023-03-20 12:45 | XRAY Report ---
PROCEDURE: Chest 1 View X-Ray INDICATIONS: chest discomfort 1 month TECHNIQUE: One view of the chest was acquired. COMPARISON: Chest x-ray, 09/12/2017. FINDINGS: Surgical changes and devices: None. Lungs and pleura: No pleural effusions or pneumothorax. Lungs are clear. Mediastinum: Mediastinal contours appear normal. Heart size is normal. Bones and chest wall: No suspicious bony lesions. Overlying soft tissues appear unremarkable. IMPRESSION: No acute cardiopulmonary process. Reviewed by: Addis Angel MD on 03/20/2023 12:44 PM PDT Approved by: Addis Angel MD on 03/20/2023 12:44 PM PDT Station ID: [id number]
[2023-03-20 12:47] LABS: INFECTIOUS MONONUCLEOSIS NEGATIVE (Negative)
[2023-03-20 12:55] LABS: ALBUMIN 4.7 g/dL (3.2-5.5); CRP - C-REACTIVE PROTEIN < 0.5 mg/dL (<0.5); LIPASE 29 U/L (11-82)
[2023-03-20 13:40] LABS: ALBUMIN/GLOBULIN RATIO 2.2 (1.0-2.2); ALKALINE PHOSPHATASE 37 IU/L (42-121); ALT ALANINE AMINOTRANSFERASE 16 IU/L (10-60); AST ASPARTATE AMINOTRANSFERASE 17 IU/L (10-42); BILIRUBIN,TOTAL 0.3 mg/dL (0.2-1.0); BUN - BLOOD UREA NITROGEN 14 mg/dL (6-20); CALCIUM 9.5 mg/dL (8.5-10.3); CARBON DIOXIDE - CO2 29 mmol/L (21-32); CHLORIDE 106 mmol/L (101-111); CREATININE 1.1 mg/dL (0.6-1.3); GFR - MDRD 79 (>89); GLUCOSE 87 mg/dL (74-104); POTASSIUM 3.7 mmol/L (3.5-4.5); SODIUM 139 mmol/L (135-145); TOTAL PROTEIN 6.8 g/dL (6.4-8.9)
[2023-03-20] MEDS ORDERED: dexAMETHasone 4 MG TABLET PO STA (13:57)
[2023-03-20] MEDS ORDERED: CETIRIZINE 10 MG TABLET PO STA (13:57)
[2023-03-20 14:24] VITALS: BP 118/72; O2SAT 100
== END 2023-03-20 14:25 | disposition home or self-care (01) ==
LOC: ED 10:43
DX: R09.81 Nasal congestion (principal); R07.9 Chest pain, unspecified; F17.200 Nicotine dependence, unspecified, uncomplicated; Z20.822 Contact with and (suspected) exposure to COVID-19
CPT/HCPCS: 36415; 71045; 80053; 83690; 85025; 86140; 86308; 87633; 99284; A9270; J8540

== ENCOUNTER 2023-03-30 09:49 | Emergency (ER) | payer OTHER ==
--- OUTSIDE RECORDS SUMMARY | 2023-03-30 10:19 | EXTERNAL MEDICAL SUMMARY RPT | Continuity of Care Document ---
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
--- NOTE | 2023-03-30 10:32 | ED Physician Documentation ---
PD HPI HEADACHE - Stated complaint Stated Complaint: MCCARTNEY - Chief complaint Chief Complaint: Neuro - History obtained from History obtained from: Patient - History of Present Illness Timing - onset: How many weeks ago Timing - onset during: Light activity Timing - duration: Weeks Timing - details: Gradual onset, Still present, Waxing and waning (had headache frontal, along with URI symptoms despite use of a steroid course, cetirizne, and nasal spray. He says feeling worse.) Review of Systems Constitutional: reports: Myalgias. denies: Fever, Chills Nose: reports: Congestion Throat: reports: Sore throat Respiratory: reports: Cough GI: denies: Vomiting, Diarrhea Skin: denies: Rash, Lesions PD PAST MEDICAL HISTORY - Past Medical History Past Medical History: Yes Cardiovascular: None Respiratory: None Neuro: Headaches Endocrine/Autoimmune: None GI: Other : None HEENT: None Psych: None Musculoskeletal: None Derm: None - Past Surgical History Past Surgical History: Yes General: Appendectomy - Present Medications Home Medications: Ambulatory Orders Medication Instructions Recorded Confirmed Amox/Clav 875/125 [Augmentin] 1 each PO Q12H #14 tablet 03/30/23 HYDROcod/ACETAM 5/325 [Milton 5/325] 1 ea PO Q6H PRN #12 tablet 03/30/23 Meloxicam [Mobic] 7.5 mg PO BID 10 Days #20 tablet 03/30/23 - Allergies Allergies/Adverse Reactions: Allergies Allergy/AdvReac Type Severity Reaction Status Date / Time No Known Drug Allergies Allergy Verified 03/30/23 09:54 - Social History Does the pt smoke?: Yes Smoking Status: Current every day smoker Does the pt drink ETOH?: No Does the pt have substance abuse?: Yes Substance Use and Type: Marijuana - Immunizations Immunizations are current?: Yes Immunizations: TDAP current <10years - POLST Patient has POLST: No PD ED PE NORMAL - Vitals Vital signs reviewed: Yes - General General: Alert and oriented X 3, No acute distress, Well developed/nourished - HEENT HEENT: Ears normal, Moist mucous membranes, Pharynx benign - Neck Neck: Supple, no meningeal sign, No adenopathy - Cardiac Cardiac: RRR, No murmur - Respiratory Respiratory: Clear bilaterally Results - Vitals Vitals: Vital Signs - 24 hr 03/30/23 03/30/23 09:56 12:04 Temperature 37.2 C 36.7 C Heart Rate 97 80 Respiratory 16 15 Rate Blood Pressure 118/72 113/71 O2 Saturation 99 98 Oxygen O2 Source Room air PD Medical Decision Making - ED course Complexity details: reviewed old records (recent visit to ER. ), considered differential (has congestion, sore throat, some cough, and frontal headache still. Now also with some upper teeth aching pain. All are concerning for sinus infection. Last visit, he had seemed to have viral/inflammatory causes. Now seems to have more consistent sinus infection. ), d/w patient Departure - Departure Disposition: Home, Self Care Clinical Impression: Frontal headache, Sinusitis Condition: Stable Record reviewed to determine appropriate education?: Yes Instructions: ED Sinusitis Abx Tx Prescriptions: Amox/Clav 875/125 [Augmentin] 1 each PO Q12H #14 tablet Meloxicam [Mobic] 7.5 mg PO BID 10 Days #20 tablet HYDROcod/ACETAM 5/325 [Milton 5/325] 1 ea PO Q6H PRN #12 tablet PRN Reason: Pain Comments: We have tried going it is inflammation of the sinuses with the steroid and cetirizine. Since you are not improved and actually worsening, consideration could be for infection in the sinuses. We can go with Augmentin antibiotic twice daily for a week. I would also add an anti-inflammatory regularly to help with the headache and inflammation. To that you can add Tylenol every 4-6 hours if needed for headache and add hydrocodone/acetaminophen if needed for worse headache. I would think this should be needed just short-term in the hopes the other medication will be improving you over the next several days. Recheck if not improved well over the next several days to week I sent your prescriptions to [facility] in [place]. I am prescribing a short course of narcotic pain medication for you. These are potentially dangerous and addictive medications that should be used carefully. These medications may constipate you. Take an [id number] stool softener such as docusate twice daily with plenty of water while taking these medications. If you go 24 hours without a bowel movement, take [id number] [id number], per package instructions. Do not drink or drive while taking these medications. If you received narcotic or sedating medications while in the emergency department do not drive for 24 hours. Store this medication in a safe, secure place and out of reach of children. It is a violation of federal law to give or sell this medication to another person or to use in a manner other than prescribed. The ED will not refill narcotic prescriptions, including prescriptions lost or stolen. You can dispose of unwanted medications at the [facility]'s office or at several pharmacies such as [facility]. Forms: PCP List Discharge Date/Time: 03/30/23 12:05
[2023-03-30] MEDS ORDERED: NAPROXEN 250 MG TABLET PO STA (11:36)
[2023-03-30] MEDS ORDERED: AMOX/CLAV 875 MG/125 MG TABLET PO STA (11:36)
[2023-03-30 12:10] VITALS: BP 113/71; O2SAT 98
== END 2023-03-30 12:05 | disposition home or self-care (01) ==
LOC: ED 09:49
DX: R51.9 Headache, unspecified (principal); J32.9 Chronic sinusitis, unspecified; F17.200 Nicotine dependence, unspecified, uncomplicated
CPT/HCPCS: 99282; 99283; A9270

== ENCOUNTER 2024-02-16 14:43 | Outpatient (CLI) | payer OTHER | END 2024-02-16 14:44 | disposition home or self-care (01) | LOC: LAB.S 14:43 | PROVIDERS: ATTEND Physician Assistant Medical | DX: R07.0 Pain in throat (principal) | CPT/HCPCS: 87070 ==